=== PATIENT | female | born 1980 | race Caucasian/White ===

== ENCOUNTER 2017-02-22 09:42 | Outpatient (CLI) | payer OTHER ==
[~2017-02-22 09:42] MED LIST: AFRIN NASAL SP0.05 %; ALENDRONATE SOD35 MG PO; ASPIRIN EC325 MG PO; BYDUREON SC; DEPO-SHOT SC; ELAVIL10 MG PO; FERROUS SULFAT325 M1 PO; FLONASE AL50 MCG/ACT; LANTUS SOL100 UNITS/ SC; LEVO-T88 MCG PO; LEXAPRO20 MG PO; METFORMIN HCL500 MG PO; NOVOLOG PE100 UNITS/ SC; SIMVASTATIN20 MG PO
--- NOTE | 2017-02-22 10:09 | DIAGNOSTIC IMAGING REPORT ---
PROCEDURE: DEXA BONE DENSITY STUDY CLINICAL INDICATION: Osteopenia, taking hormone replacement, Fosamax, vitamin D, and calcium supplementation. COMPARISON: 07/19/2015 FINDINGS: LUMBAR SPINE: Bone mineral density 1.194 g/cm2, T score 1.3, normal , change from previous 2.4 percent, significant LEFT HIP: Bone mineral density 0.933 g/cm2, T score -0.1, normal, change from previous -1.9 percent . LEFT FEMORAL NECK: Bone mineral density 0.688 g/cm2, T score -1.4, osteopenia , change from previous -5.8 percent, significant FRACTURE RISK CALCULATION ( when applicable): 10-year fracture risk of a major osteoporotic fracture 2% and of a hip fracture 0.2%. (T score greater or equal to -1.0 to: NORMAL) (T score from -1.1 to -2.4: OSTEOPENIA) (T score ess than or equal to -2.5: OSTEOPOROSIS) IMPRESSION: 1. Significant decrease in bone mineral density of the left femoral neck compared to the previous study. 2. Osteopenia of the left femoral neck increases the patient's fracture risk as described.
== END 2017-02-22 23:00 ==
LOC: XR SRH 09:42
DX: M85.80 Other specified disorders of bone density and structure, unspecified site (principal)